=== PATIENT | female | born 1960 | race Caucasian/White ===

== ENCOUNTER → 2016-07-15 | Outpatient (CLI) | payer OTHER ==
--- NOTE | 2016-07-15 20:34 | MR ---
EXAMINATION TYPE: MR lumbar spine wo/w con DATE OF EXAM: 07/15/2016 8:19 PM COMPARISON: NONE HISTORY: Numbness, pain, and burning down left leg TECHNIQUE: Multiplanar, multisequence images of the lumbar spine were acquired utilizing 20 mL intravenous Multi Sriram gadolinium contrast. L1-L2: Normal disc appearance without desiccation. No herniation, protrusion or disc bulging. No ca nal stenosis is present. Foramina are patent bilaterally. L2-L3: Normal disc appearance without desiccation. No herniation, protrusion or disc bulging. No ca nal stenosis is present. Foramina are patent bilaterally. L3-L4: Facet arthropathy is present causing some minimal posterior lateral mass effect on the thecal sac. No significant foraminal encroachment. Minimal anterolisthesis grade 1 contributes to cause some minimal anterior mass effect on the thecal sac. Only slight central stenosis. L4-L5: The listhesis contributes to cause bilateral foraminal encroachment. Broad-based posterior dis c bulge causes minimal anterior mass effect on the thecal sac. Facet arthropathy with hypertrophy lig amentum flavum causes some lateral recess encroachment greater on the right. No significant central s tenosis. L5-S1: Circumferential extension of endplate disc complex is present, only minimal encroachment on th e lateral recesses. There is facet arthropathy however. Broad-based posterior disc bulge causes minim al anterior mass effect on the thecal sac Lumbar segments are intact. No paraspinal masses are identified. Conus medullaris has a normal appe arance. There is a large cyst which is partially visualized associated with the left kidney. Lumbar v ertebral bodies show preserved height and end plate marrow signal change, multilevel spondylosis is p resent, there is minimal anterolisthesis grade 1 L4-5 with associated loss of disc height and signal. No significant abnormal enhancement following contrast administration. IMPRESSION: Degenerative disc disease, facet arthropathy and additional findings described above.
== END ==
LOC: RADMRIMAIN 17:54
PROVIDERS: ATTEND Physician Assistant
DX: M51.36 Other intervertebral disc degeneration, lumbar region (principal); M46.96 Unspecified inflammatory spondylopathy, lumbar region; M46.97 Unspecified inflammatory spondylopathy, lumbosacral region; M48.06 Spinal stenosis, lumbar region; M51.27 Other intervertebral disc displacement, lumbosacral region
CPT/HCPCS: 72158; A9577

== ENCOUNTER → 2020-12-23 | Outpatient (CLI) | payer BC, OTHER ==
[~2020-12-23] MED LIST: REGADENOSON 0.4 MG/5 ML SYRINGE IV PRN
--- NOTE | 2020-12-23 20:05 | NM ---
EXAMINATION TYPE: NM stress lexiscan cardiolite DATE OF EXAM: 12/23/2020 COMPARISON: NONE HISTORY: Abnormal EKG TECHNIQUE: After the intravenous administration of 10 mCi Tc 99m Sestamibi - Cardiolite resting SPEC T images acquired 55 minutes post injection. At peak stress 25.7 mCi Tc 99m Sestamibi - Stress images obtained 35 minutes post injection The patient was stressed with 0.4mg Lexiscan. FINDINGS: There is diminished radiotracer accumulation within the anterior wall and the inferior wall on both r est and stress images. This appears to be matched. Polar maps suggest a prior inferior wall infarct w ith peripheral stress-induced ischemic change. The anterior wall suspected stress-induced ischemic ch anges appear underrepresented on the polar maps. Septal wall and lateral wall appear preserved on SPE CT and polar maps. Wall motion is normal Ejection fraction is calculated to be 63 %. IMPRESSION: 1. Prior infarct inferior wall. Some eliz-infarct stress-induced ischemic change may be present. 2. SPECT imaging suggests stress-induced ischemic change along the anterior wall. This is less well r epresented on the polar maps. 3. Normal wall motion and ejection fraction.
--- NOTE | 2020-12-24 18:10 | P.STRESS ---
- Stress Test Note Stress Test Results/Findings: Exam Performed: NM stress lexiscan cardiolite Exam Date: 12/23/20 Reason for Exam: ABNORMAL EKG Height: 5 ft 1 in Weight: 119.295 kg Protocol: LEXISCAN Stage: NA Duration of Exercise: NA Resting Heart Rate: 59 Resting Blood Pressure: 160/78 Maximum Achieved Heart Rate: 80 Maximum Achieved Blood Pressure: 160/78 85% PMHR: 135 100% PMHR: 159 METS: NA Technologist Comment: Stress Test Results/Findings: At baseline EKG showed normal sinus rhythm, normal axis, no significant ST or T- wave abnormalities. Patient recieved IV infusion of Lexiscan 0.4mg and at peak infusion EKG showed no significant change from baseline. Conclusions: 1. Normal EKG response to Lexiscan infusion 2. Nuclear imaging to be reported separately.
== END | disposition home or self-care (01) ==
LOC: RADNMMAIN 08:32
PROVIDERS: ATTEND Family Medicine
DX: R94.31 Abnormal electrocardiogram [ECG] [EKG] (principal)
CPT/HCPCS: 93017; 78452; A9500; J2785

== ENCOUNTER → 2021-01-21 | Outpatient (CLI) | payer BC ==
--- NOTE | 2021-01-25 09:35 | MM ---
Reason for exam: screening (asymptomatic). Last mammogram was performed 4 years and 4 months ago. History: Patient is postmenopausal. Took hormonal contraceptives for 11 years. Physical Findings: A clinical breast exam by your physician is recommended on an annual basis and results should be correlated with mammographic findings. MG Screening Mammo w CAD Bilateral CC and MLO view(s) were taken. Prior study comparison: October 05, 2016, mammogram, performed at [facility]. There are scattered fibroglandular densities. No significant changes when compared with prior studies. ASSESSMENT: Negative, BI-RAD 1 RECOMMENDATION: Routine screening mammogram of both breasts in 1 year.
== END | disposition home or self-care (01) ==
LOC: RADMAMWWP 10:06
PROVIDERS: ATTEND Family Medicine
DX: Z12.31 Encounter for screening mammogram for malignant neoplasm of breast (principal); Z78.0 Asymptomatic menopausal state; Z79.3 Long term (current) use of hormonal contraceptives
CPT/HCPCS: 77067

== ENCOUNTER 2021-02-11 08:05 | Day surgery (SDC) | payer BC ==
[2021-02-09 09:58] VITALS: BMI 49.3
[2021-02-11] MEDS ORDERED: LACTATED RINGERS 1,000 ML IV SCH (08:19)
[2021-02-11] MEDS ORDERED: LIDOCAINE 1% (10MG/ML) FOR IV START INTRADERMA PRN (08:19)
[2021-02-11 08:27] VITALS: TEMP 97.9
[2021-02-11] MEDS ORDERED: LACTATED RINGERS 1,000 ML IV ONE (08:27)
--- NOTE | 2021-02-11 10:00 | P.GSHP ---
History of Present Illness H&P Date: 02/11/21 Chief Complaint: Screening colonoscopy This a 61-year-old female who presents today for screening colonoscopy. Patient denies any significant GI complaints. Past Medical History Past Medical History: Hyperlipidemia, Hypertension Additional Past Medical History / Comment(s): "Chronic cough from vapors at work." History of Any Multi-Drug Resistant Organisms: None Reported Past Surgical History: Cholecystectomy, Orthopedic Surgery, Tubal Ligation Additional Past Surgical History / Comment(s): Bilateral carpal tunnel surgery. Past Anesthesia/Blood Transfusion Reactions: No Reported Reaction Past Psychological History: Anxiety Smoking Status: Never smoker Past Alcohol Use History: Rare Past Drug Use History: None Reported - Past Family History Father Family Medical History: No Reported History Medications and Allergies Home Medications Medication Instructions Recorded Confirmed Type Atorvastatin [Lipitor] 20 mg PO HS 02/09/21 02/09/21 History Ergocalciferol [Vitamin D2 (1250 1,250 mcg PO ACEVES 02/09/21 02/09/21 History Mcg = 70770 Iu)] Escitalopram Oxalate [Lexapro] 10 mg PO HS 02/09/21 02/09/21 History Metoprolol Succinate (ER) [Toprol 25 mg PO QAM 02/09/21 02/09/21 History Xl] Allergies Allergy/AdvReac Type Severity Reaction Status Date / Time No Known Allergies Allergy Unverified 02/09/21 09:46 Surgical - Exam Vital Signs Temp Pulse Resp BP Pulse Ox 97.9 F 61 18 173/82 98 02/11/21 08:26 02/11/21 08:26 02/11/21 08:26 02/11/21 08:26 02/11/21 08:26 - General well developed, well nourished, no distress - Eyes PERRL - ENT normal pinna - Neck no masses - Respiratory normal expansion - Cardiovascular Rhythm: regular - Abdomen Abdomen: soft, non tender Assessment and Plan Assessment: We'll perform screening colonoscopy.
[2021-02-11] MEDS ORDERED: PROPOFOL 10 MG/ML 20 ML VIAL IV ONE (10:06)
--- NOTE | 2021-02-11 10:19 | P.OP ---
Date of Procedure: 02/11/21 Preoperative Diagnosis: Screening colonoscopy Postoperative Diagnosis: Diverticulosis Procedure(s) Performed: Colonoscopy Anesthesia: MAC Surgeon: Scottie Narayan Pathology: none sent Condition: stable Disposition: PACU Description of Procedure: The patient's placed on the endoscopy table in the lateral position. She received IV sedation. Digital rectal exam was performed which revealed no abnormalities. The flexible colonoscope was then placed patient anus and passed throughout the entire colon. The ileocecal valve was visualized. Cecum, ascending and transverse colon appeared normal. In the descending and sigmoid colon there is extensive diverticular changes. Scope was brought back the re ctum and this appeared normal. Scope was withdrawn for patient.
[2021-02-11 10:28] VITALS: RESP 16
[2021-02-11 10:47] VITALS: BP 125/70; PULSE 66
== END 2021-02-11 11:27 | disposition home or self-care (01) ==
LOC: ORWHC2ENDO 08:05
PROVIDERS: ATTEND Surgery
DX: Z12.11 Encounter for screening for malignant neoplasm of colon (principal); K57.30 Diverticulosis of large intestine without perforation or abscess without bleeding; E78.5 Hyperlipidemia, unspecified; I10 Essential (primary) hypertension; Z90.49 Acquired absence of other specified parts of digestive tract; Z98.51 Tubal ligation status; Z98.890 Other specified postprocedural states; F41.9 Anxiety disorder, unspecified; Z79.899 Other long term (current) drug therapy
CPT/HCPCS: J2704; G0121

== ENCOUNTER → 2023-01-11 | Outpatient (CLI) | payer BC ==
--- NOTE | 2023-01-12 08:56 | MM ---
Reason for Exam: Screening (asymptomatic). Last mammogram was performed 1 year(s) and 11 month(s) ago. Patient History: Menarche at age 11. First Full-Term at age 25. Postmenopausal. Patient used Hormonal Contraceptives for 11 years. Risk Values: Isatu 5 year model risk: 1.7%. NCI Lifetime model risk: 7.4%. Prior Study Comparison: 12/11/2012 Screening Mammogram, [facility]. 10/05/2016 Screening Mammogram, [facility]. 01/21/2021 Bilateral Screening Mammogram, [facility]. Tissue Density: The breast tissue is almost entirely fat. Findings: Analyzed By CAD. There is no suspicious group of microcalcifications or new suspicious mass in either breast. Overall Assessment: Negative, BI-RAD 1 Management: Screening Mammogram of both breasts in [address] [facility] will attempt to contact patient to return for supplemental views and ultrasound if indicated. Patient should continue monthly self-breast exams. A clinical breast exam by your physician is recommended on an annual basis. This exam should not preclude additional follow-up of suspicious palpable abnormalities. Note on Isatu scores and lifetime risk: 1. A Isatu score greater than 3% is considered moderate risk. If this is the case, consider specialist referral to assess eligibility for a risk reducing agent. 2. If overall lifetime risk for the development of breast cancer is 20% or higher, the patient may qualify for future screening with alternating mammogram and breast MRI. Electronically signed and approved by: Edwin Muro DO
== END | disposition home or self-care (01) ==
LOC: RADMAMWWP 16:21
PROVIDERS: ATTEND Family Medicine
DX: Z12.31 Encounter for screening mammogram for malignant neoplasm of breast (principal); Z78.0 Asymptomatic menopausal state
CPT/HCPCS: 77067

== ENCOUNTER → 2024-04-05 | Outpatient (CLI) | payer BC ==
--- NOTE | 2024-04-09 18:04 | MM ---
Reason for Exam: Screening (asymptomatic). Last mammogram was performed 1 year(s) and 3 month(s) ago. Patient History: Menarche at age 11. First Full-Term at age 25. Postmenopausal. Patient used Hormonal Contraceptives for 11 years. Risk Values: Isatu 5 year model risk: 1.8%. NCI Lifetime model risk: 6.9%. Prior Study Comparison: 10/05/2016 Screening Mammogram, [facility]. 01/21/2021 Bilateral Screening Mammogram, [facility]. 01/11/2023 Bilateral MG screening mammo w CAD, [facility]. Tissue Density: There are scattered areas of fibroglandular density. Findings: Analyzed By CAD. There is no suspicious group of microcalcifications or new suspicious mass in either breast. Overall Assessment: Negative, BI-RAD 1 Management: Screening Mammogram of both breasts in 1 year. . Patient should continue monthly self-breast exams. A clinical breast exam by your physician is recommended on an annual basis. This exam should not preclude additional follow-up of suspicious palpable abnormalities. Note on Isatu scores and lifetime risk: 1. A Isatu score greater than 3% is considered moderate risk. If this is the case, consider specialist referral to assess eligibility for a risk reducing agent. 2. If overall lifetime risk for the development of breast cancer is 20% or higher, the patient may qualify for future screening with alternating mammogram and breast MRI. [facility], , 04/09/2024 6:02 PM. Electronically signed and approved by: Darnell Bangura M.D. Radiologist
== END | disposition home or self-care (01) ==
LOC: RADMAMWWP 16:18
PROVIDERS: ATTEND Family Medicine
DX: Z12.31 Encounter for screening mammogram for malignant neoplasm of breast (principal); Z78.0 Asymptomatic menopausal state; R92.323 Mammographic fibroglandular density, bilateral breasts
CPT/HCPCS: 77067

== ENCOUNTER 2024-10-24 17:38 | Emergency (ER) | payer BC, MEDICARE ==
--- NOTE | 2024-10-24 18:51 | ED ---
General Adult HPI - General Chief complaint: Extremity Problem,Nontraumatic Stated complaint: L Leg Pain Time Seen by Provider: 10/24/24 17:42 Source: patient, RN notes reviewed, old records reviewed Mode of arrival: ambulatory Limitations: no limitations - History of Present Illness Initial comments: 64-year-old female presents with complaints of left lower extremity pain. States she was at her PCPs office when her PCP saw her leg and thought that she should be brought to the emergency room for workup of potential DVT. Denies chest pain, shortness of breath, palpitations. States for the last couple of weeks she has noticed her left leg being more swollen than usual. Reports she has the least amount of swelling in the morning when she wakes up, but when she gets out of bed it gets progressively worse throughout the day. Reports sometimes she can elevate her legs and this helps reduce the swelling. States the majority of the pain occurs in the back of the left calf. Denies history of blood clots or PE in the past. Patient denies any other symptoms including headache, nausea, vomiting, diarrhea, constipation. - Related Data Home Medications Medication Instructions Recorded Confirmed Atorvastatin [Lipitor] 20 mg PO HS 02/09/21 02/09/21 Ergocalciferol [Vitamin D2 (1250 1,250 mcg PO ACEVES 02/09/21 02/09/21 Mcg = 08019 Iu)] Escitalopram Oxalate [Lexapro] 10 mg PO HS 02/09/21 02/09/21 Metoprolol Succinate (ER) [Toprol 25 mg PO QAM 02/09/21 02/09/21 Xl] Allergies Allergy/AdvReac Type Severity Reaction Status Date / Time No Known Allergies Allergy Verified 10/24/24 17:47 Review of Systems ROS Statement: Those systems with pertinent positive or pertinent negative responses have been documented in the HPI. ROS Other: All systems not noted in ROS Statement are negative. Past Medical History Past Medical History: Hyperlipidemia, Hypertension Additional Past Medical History / Comment(s): "Chronic cough from vapors at work." History of Any Multi-Drug Resistant Organisms: None Reported Past Surgical History: Cholecystectomy, Orthopedic Surgery, Tubal Ligation Additional Past Surgical History / Comment(s): Bilateral carpal tunnel surgery. Past Anesthesia/Blood Transfusion Reactions: No Reported Reaction Past Psychological History: Anxiety Smoking Status: Never smoker Past Alcohol Use History: Rare Past Drug Use History: None Reported - Past Family History Father Family Medical History: No Reported History General Exam - General Exam Comments Initial Comments: GENERAL: In no apparent distress at the time of examination. Pleasant and cooperative. HEENT: Head is atraumatic, normocephalic. Pupils are equal, round, and reactive to light. Sclerae anicteric. Conjunctivae are clear. Mucus membranes of the mouth are moist. Neck is supple. RESPIRATORY: Clear to auscultation. No wheezes, rales, or rhonchi. No use of accessory muscles. Patient maintaining oxygen saturation greater than 92%. No chest wall tenderness is noted on palpation or with deep breathing. CARDIOVASCULAR: Regular rate and rhythm. S1 and S2 noted. No systolic or diastolic murmur auscultated. No JVD noted. No S3 or S4 noted. GASTROINTESTINAL: No distention noted. Abdomen soft and round. Normal active bowel sounds auscultated x 4 quadrants. No pain or tenderness noted upon palpation. INTEGUMENTARY: No cyanosis. No jaundice. No rashes noted. No cellulitis noted. EXTREMITIES: 2+ peripheral pulses. Bilateral peripheral edema in the lower extremities up to the mid calf 2-3+, significant tenderness to palpation of the left calf. PSYCHIATRIC: Awake, alert, and oriented X 3. Appropriate affect. Intact judgement and insight. Limitations: no limitations Course Vital Signs 10/24/24 17:47 Temperature 98.0 F Pulse Rate 64 Respiratory 16 Rate Blood Pressure 184/84 O2 Sat by Pulse 99 Oximetry Medical Decision Making - Medical Decision Making Was pt. sent in by a medical professional or institution (, PA, SECURITY SYSTEMS INTEGRATOR, urgent care, hospital, or jail...) When possible be specific @ -Yes by her PCP Did you speak to anyone other than the patient for history (EMS, parent, family, police, friend...)? What history was obtained from this source @ -No Did you review nursing and triage notes (agree or disagree)? Why? @ -I reviewed and agree with nursing and triage notes Were old charts reviewed (outside hosp., previous admission, EMS record, old EKG, old radiological studies, urgent care reports/EKG's, jail records)? Report findings @ -No old charts were reviewed Differential Diagnosis? @ -DVT versus chronic venous insufficiency versus muscle strain versus muscle cramps versus Achilles tendinopathy versus Luna's cyst versus superficial thrombophlebitis versus cellulitis versus acute compartment syndrome versus acute limb ischemia this is not meant to be a fully inclusive list EKG interpreted by me (3pts min.). @ -As above X-rays interpreted by me (1pt min.). @ -None done CT interpreted by me (1pt min.). @ -None done U/S interpreted by me (1pt. min.). @ -Left venous ultrasound of the lower extremity shows no evidence of DVT What testing was considered but not performed or refused? (CT, X-rays, U/S, labs)? Why? @ -None What meds were considered but not given or refused? Why? @ -None Did you discuss the management of the patient with other professionals (professionals i.e. , PA, SECURITY SYSTEMS INTEGRATOR, lab, RT, psych nurse, foster care social worker, circle beveler, teacher, radiological defense officer, bottle caser)? Give summary @ -No Was smoking cessation discussed for >3mins.? @ -No Was critical care preformed (if so, how long)? @ -No Were there social determinants of health that impacted care today? How? (Homelessness, low income, unemployed, alcoholism, drug addiction, transportation, low edu. Level, literacy, decrease access to med. care, fpc, rehab)? @ -No Was there de-escalation of care discussed even if they declined (Discuss DNR or withdrawal of care, Hospice)? DNR status @ -No What co-morbidities impacted this encounter? (DM, HTN, Smoking, COPD, CAD, Cancer, CVA, ARF, Chemo, Hep., AIDS, mental health diagnosis, sleep apnea, morbid obesity)? @ -None Was patient admitted / discharged? Hospital course, mention meds given and route, prescriptions, significant lab abnormalities, going to OR and other pertinent info. @ -Discharged, 64-year-old female presenting from the PCP office with concerns for potential DVT in the left lower extremity. Patient underwent left lower extremity venous ultrasound which showed no evidence of DVT. Patient continued to have no complaints outside of the lower extremity swelling. Patient was discharged to home advised to follow-up with PCP in 1 to 2 days. Undiagnosed new problem with uncertain prognosis? @ -No Drug Therapy requiring intensive monitoring for toxicity (Heparin, Nitro, Insulin, Cardizem)? @ -No Were any procedures done? @ -No Diagnosis/symptom? @ -Chronic venous insufficiency Acute, or Chronic, or Acute on Chronic? @ -Acute on chronic Uncomplicated (without systemic symptoms) or Complicated (systemic symptoms)? @ -Default Side effects of treatment? @ -No Exacerbation, Progression, or Severe Exacerbation? @ -No Poses a threat to life or bodily function? How? (Chest pain, [place], [place], pneumonia, PE, COPD, DKA, ARF, appy, cholecystitis, CVA, Diverticulitis, Homicidal, Suicidal, threat to staff... and all critical care pts) @ -No Disposition Clinical Impression: Venous (peripheral) insufficiency Disposition: HOME SELF-CARE Instructions (If sedation given, give patient instructions): Leg Edema (ED) Is patient prescribed a controlled substance at d/c from ED?: No Referrals: Miranda García DO [Primary Care Provider] - 1-2 days
--- NOTE | 2024-10-24 20:54 | US ---
EXAMINATION TYPE: US venous doppler duplex LE LT DATE OF EXAM: 10/24/2024 7:52 PM COMPARISON: NONE CLINICAL INDICATION: Female, 64 years old with history of LE swelling and warmth; le swelling and war mth, Pain TECHNIQUE: The lower extremity deep venous system is examined utilizing real time linear array sonog liz with graded compression, color doppler sonography, and spectral doppler. SIDE PERFORMED: Left FINDINGS: VESSELS IMAGED: Common Femoral Vein Deep Femoral Vein Greater Saphenous Vein * Femoral Vein Popliteal Vein Small Saphenous Vein * Proximal Calf Veins (* superficial vessels) Left Leg: Negative for DVT, Color Doppler imaging shows patency of the vessels. Spectral waveforms a re within normal limits. IMPRESSION: No ultrasound evidence for deep venous thrombosis. [facility], , 10/24/2024 8:52 PM
[2024-10-24 21:51] VITALS: BP 157/63; PULSE 63; RESP 18; TEMP 98.2
== END 2024-10-24 21:51 | disposition home or self-care (01) ==
LOC: EC 17:38
DX: I87.2 Venous insufficiency (chronic) (peripheral) (principal)
CPT/HCPCS: 99283